=== PATIENT | male | born 1980 | race Caucasian/White ===

== ENCOUNTER 2016-10-06 11:46 | Emergency (ER) | payer BC ==
[~2016-10-06] VITALS: Ht 167.6 cm; Wt 72.7 kg
[2016-10-06 11:50] VITALS: Ht 167.6 cm; Wt 72.7 kg
[2016-10-06] MEDS ORDERED: SIMV20TA PO (11:55)
[2016-10-06] MEDS ORDERED: HYDROmorphONE 1 MG/ML SYG IV STA ×2 (12:41→15:04)
[2016-10-06] MEDS ORDERED: SOD CHLORIDE 0.9% 1,000 ML IV STA (12:41)
[2016-10-06] MEDS ORDERED: ONDANSETRON 4 MG INJ IV STA (12:41)
[2016-10-06] MEDS ORDERED: LORAZEPAM 2 MG INJ IV ONE (13:00)
[2016-10-06 13:24] VITALS: TEMP 98.6
[2016-10-06 13:32] LABS: ADD SCAN DIFF NO
[2016-10-06 13:36] LABS: BASOPHIL # 0.1 10^3/ul (0.0-0.1); BASOPHILS % 0.8 % (0.0-2.0); EOSINOPHILS # 0.1 10^3/ul (0.0-0.5); EOSINOPHILS % 1.3 % (0.0-7.0); HEMATOCRIT 41.9 % (42.0-52.0); HEMOGLOBIN 14.1 g/dl (14.0-18.0); LYMPHOCYTES # 1.6 10^3/ul (0.8-2.9); LYMPHOCYTES % 26.5 % (15.0-51.0); MEAN CORPUSCULAR HEMOGLOBIN 30.5 pg (29.0-33.0); MEAN CORPUSCULAR HGB CONC 33.7 g/dl (32.0-37.0); MEAN CORPUSCULAR VOLUME 90.7 fl (82.0-101.0); MEAN PLATELET VOLUME 10.9 fl (7.4-10.4); MONOCYTE # 0.4 10^3/ul (0.3-0.9); MONOCYTES % 6.7 % (0.0-11.0); NEUTROPHIL # 3.9 10^3/ul (1.6-7.5); NEUTROPHILS % 64.4 % (39.0-77.0); PLATELET COUNT 190 10^3/UL (140-415); RED BLOOD COUNT 4.62 10^6/ul (4.70-6.10); RED CELL DISTRIBUTION WIDTH 12.5 % (11.5-14.5)
[2016-10-06 13:47] LABS: ALBUMIN 4.4 g/dl (3.3-4.9)
[2016-10-06 13:48] LABS: POTASSIUM 3.6 mmol/L (3.5-5.1)
[2016-10-06 13:50] LABS: ALBUMIN/GLOBULIN RATIO 1.57; BILIRUBIN,INDIRECT 0.4 mg/dl (0-1.1); BILIRUBIN,TOTAL 0.4 mg/dl (0.2-1.3); CREATININE 0.62 mg/dl (0.61-1.24); TOTAL PROTEIN 7.2 g/dl (6.1-8.1)
[2016-10-06 13:51] LABS: CALCIUM 9.4 mg/dl (8.4-10.2)
[2016-10-06] MEDS ORDERED: SOD CHLORIDE 0.9% 100 ML ONE (14:04)
[2016-10-06] MEDS ORDERED: IOHEXOL 300MG/ML 150 ML BTL ONE (14:04)
--- NOTE | 2016-10-06 14:27 | RADRPT ---
PROCEDURE: CT abdomen and pelvis with contrast. CLINICAL INDICATION: Abdominal pain. TECHNIQUE: CT scan of the abdomen and pelvis with contrast was performed after the uneventful intr avenous administration of 100 cc of Omnipaque-300. Coronal and sagittal reformatted images were obta ined from the axial source images. Images were reviewed on a high-resolution PACS workstation. The t otal exam CTDI equals 10 mGy and the total exam DLP equals 602.67 mGy-cm. One or more of the following dose reduction techniques were used: - Automated exposure control. - Adjustment of the mA and/or kV according to patient size. - Use of iterative reconstruction technique. COMPARISON: None available. FINDINGS: The visualized lung bases are clear. The visualized heart is unremarkable. The liver is normal in size and density with no focal hepatic lesion identified. There is no intra or extra-hepatic biliary ductal dilatation. The gallbladder, spleen, pancreas, and adrenal glands ar e unremarkable. There are no renal masses or hydronephrosis. There is mild wall thickening of the descending colon, sigmoid colon, and rectum. There is also mil d wall thickening and hyperemia of the loop of distal ileum. The terminal ileum is normal in appear ance. There is no evidence of bowel obstruction. The appendix is not identified but there are no sec ondary findings of appendicitis. There is no free intraperitoneal air or free fluid. There is no mes enteric or retroperitoneal adenopathy. The prostate gland, seminal vesicles, and urinary bladder are unremarkable. There are atherosclerotic changes of the aorta and its branch vessels, which are non aneurysmal. There are no concerning osseous lesions. IMPRESSION: 1. Wall thickening of the descending colon, sigmoid colon, and rectum, consistent with proctocoliti s. There is also distal ileitis. Differential considerations include infection and inflammatory enid wel disease. 2. Vascular calcifications consistent with atherosclerosis. RPTAT: TT .Tobi Singh MD, MD Date Time Electronically viewed and signed by .Tobi Singh MD, MD on 10/06/2016 14:27 .P/
[2016-10-06 16:10] VITALS: BP 114/79; PULSE 90; RESP 17
[2016-10-06] MEDS ORDERED: CIPR500T4 PO (16:40)
[2016-10-06] MEDS ORDERED: METR500T14 PO (16:40)
[2016-10-06] MEDS ORDERED: HYDR-902 PO (16:40)
--- NOTE | 2016-10-06 16:45 | ERD ---
ER Documentation Chief Complaint Date/Time DATE: 10/06/16 TIME: 16:41 Chief Complaint Abdominal pain HPI This a 36-year-old male who abuses alcohol. The patient states she has had no alcohol in 5 days. Patient states he is gradually developed some diffuse lower abdominal pain with nausea but no vomiting no diarrhea. The patient's had a bowel movement this morning that was nonbloody. No back pain. The patient says that he is not an alcohol withdrawal that he has had withdrawal before. The patient says that withdrawal usually occurs when right when he stops drinking and not 5 days later. Pain is described as crampy and dull and constant without radiation. No perennial pain. ROS All systems reviewed and are negative except as per history of present illness. Medications Home Meds Active Scripts Hydrocodone/Acetaminophen (Halma 10-325 Tablet) 1 Each Tablet, 1 TAB PO Q6H Y for PAIN, #20 TAB Prov:YELENA MARTIN DO 10/06/16 Metronidazole (Flagyl) 500 Mg Tab, 500 MG PO Q8, #30 TAB Prov:YELENA MARTIN. DO 10/06/16 Ciprofloxacin Hcl* (Ciprofloxacin Hcl*) 500 Mg Tablet, 500 MG PO BID for 10 Days , TAB Prov:KENDAL MARTINSTPARISHS Jason DO 10/06/16 Reported Medications Simvastatin* (Zocor*) 20 Mg Tablet, 20 MG PO QHS, #30 TAB 10/06/16 Allergies Allergies: Coded Allergies: No Known Allergy (Unverified , 10/06/16) PMhx/Soc Medical and Surgical Hx: pt denies Medical Hx Hx Miscellaneous Medical Probl: Yes (HYPERLIPIDEMIA) Hx Alcohol Use: Yes Hx Substance Use: Yes Hx Tobacco Use: Yes Smoking Status: Current every day smoker FmHx Family History: No coronary disease Physical Exam Vitals Vital Signs Date Time Temp Pulse Resp B/P Pulse Ox O2 Delivery O2 Flow Rate FiO2 10/06/16 16:10 90 17 114/79 100 Room Air 10/06/16 15:30 87 17 102/81 100 Room Air 10/06/16 13:24 98.6 83 18 116/82 100 Room Air 10/06/16 11:50 97.8 75 18 186/97 98 Physical Exam Const: Well-developed, well-nourished Head: Atraumatic, normocephalic Eyes: Normal Conjunctiva, PERRLA, EOMI, normal sclera, no nystagmus ENT: Normal External Ears, Nose and Mouth, moist mucus membranes. Neck: Full range of motion. No meningismus, no lymphadenopathy. Resp: Clear to auscultation bilaterally, no wheezing, rhonchi, rales Cardio: Regular rate and rhythm, no murmurs, S1 S2 present Abd: Soft, mild diffuse left lower quadrant/suprapubic tenderness, non distended. Normal bowel sounds, no guarding or rebound, no pulsitile abdominal masses or bruits Skin: No petechiae or rashes, no ecchymosis , no maculopapular rash Back: No midline or flank tenderness Ext: No cyanosis, or edema, FROM x 4, normal inspection, neurovascularly intact x 4 Neur: Awake and alert, STR 5/5 x 4, sensation intact x 4, no focal findings, cerebellum intact Psych: Normal Mood and Affect Result Diagram: 10/06/16 1320 10/06/16 1320 Results 24 hrs Laboratory Tests Test 10/06/16 13:20 Alanine Aminotransferase (ALT/SGPT) 52IU/L Albumin 4.4g/dl Albumin/Globulin Ratio 1.57 Alkaline Phosphatase 78IU/L Anion Gap 17 Aspartate Amino Transf (AST/SGOT) 57IU/L Basophils # 0.110^3/ul Basophils % 0.8% Blood Urea Nitrogen 8mg/dl Calcium Level 9.4mg/dl Carbon Dioxide Level 24mmol/L Chloride Level 103mmol/L Creatinine 0.62mg/dl Direct Bilirubin 0.00mg/dl Eosinophils # 0.110^3/ul Eosinophils % 1.3% Globulin 2.80g/dl Glucose Level 101mg/dl Hematocrit 41.9% Hemoglobin 14.1g/dl Indirect Bilirubin 0.4mg/dl Lipase 102U/L Lymphocytes # 1.610^3/ul Lymphocytes % 26.5% Mean Corpuscular Hemoglobin 30.5pg Mean Corpuscular Hemoglobin Concent 33.7g/dl Mean Corpuscular Volume 90.7fl Mean Platelet Volume 10.9fl Monocytes # 0.410^3/ul Monocytes % 6.7% Neutrophils # 3.910^3/ul Neutrophils % 64.4% Nucleated Red Blood Cells # 0.010^3/ul Nucleated Red Blood Cells % 0.0/100WBC Platelet Count 50434^3/UL Potassium Level 3.6mmol/L Red Blood Count 4.6210^6/ul Red Cell Distribution Width 12.5% Sodium Level 140mmol/L Total Bilirubin 0.4mg/dl Total Protein 7.2g/dl White Blood Count 6.010^3/ul Current Medications Medications (Trade) Dose Ordered Sig/Ashley Route PRN Reason Start Time Stop Time Status Last Admin Dose Admin Sodium Chloride (NS) 1,000 ml @ 1,000 mls/hr Q1H STAT IV 10/06/16 12:41 10/06/16 13:40 DC 10/06/16 13:14 Hydromorphone HCl (Dilaudid) 1 mg ONCE STAT IV 10/06/16 12:41 10/06/16 12:43 DC 10/06/16 13:14 Ondansetron HCl (Zofran Inj) 4 mg ONCE STAT IV 10/06/16 12:41 10/06/16 12:43 DC 10/06/16 13:14 Lorazepam (Ativan) 1 mg ONCE ONCE IV 10/06/16 13:00 10/06/16 13:01 DC 10/06/16 13:14 IV Flush 10 ml 10 ml STK-MED ONCE .ROUTE 10/06/16 14:04 10/06/16 14:05 DC 10/06/16 14:21 Sodium Chloride (NS) 100 ml @ ud STK-MED ONCE .ROUTE 10/06/16 14:04 10/06/16 14:05 DC 10/06/16 14:19 Iohexol (Omnipaque 300mg/ ml) 150 ml STK-MED ONCE .ROUTE 10/06/16 14:04 10/06/16 14:05 DC 10/06/16 14:18 Hydromorphone HCl (Dilaudid) 1 mg ONCE STAT IV 10/06/16 15:04 10/06/16 15:05 DC 10/06/16 15:28 Procedures/MDM PROCEDURE: CT abdomen and pelvis with contrast. CLINICAL INDICATION: Abdominal pain. TECHNIQUE: CT scan of the abdomen and pelvis with contrast was performed after the uneventful intravenous administration of 100 cc of Omnipaque-300. Coronal and sagittal reformatted images were obtained from the axial source images. Images were reviewed on a high-resolution PACS workstation. The total exam CTDI equals 10 mGy and the total exam DLP equals 602.67 mGy-cm. One or more of the following dose reduction techniques were used: - Automated exposure control. - Adjustment of the mA and/or kV according to patient size. - Use of iterative reconstruction technique. COMPARISON: None available. FINDINGS: The visualized lung bases are clear. The visualized heart is unremarkable. The liver is normal in size and density with no focal hepatic lesion identified. There is no intra or extra-hepatic biliary ductal dilatation. The gallbladder, spleen, pancreas, and adrenal glands are unremarkable. There are no renal masses or hydronephrosis. There is mild wall thickening of the descending colon, sigmoid colon, and rectum. There is also mild wall thickening and hyperemia of the loop of distal ileum. The terminal ileum is normal in appearance. There is no evidence of bowel obstruction. The appendix is not identified but there are no secondary findings of appendicitis. There is no free intraperitoneal air or free fluid. There is no mesenteric or retroperitoneal adenopathy. The prostate gland, seminal vesicles, and urinary bladder are unremarkable. There are atherosclerotic changes of the aorta and its branch vessels, which are nonaneurysmal. There are no concerning osseous lesions. IMPRESSION: 1. Wall thickening of the descending colon, sigmoid colon, and rectum, consistent with proctocolitis. There is also distal ileitis. Differential considerations include infection and inflammatory bowel disease. 2. Vascular calcifications consistent with atherosclerosis. RPTAT: TT .Tobi Singh MD, Date Time Electronically viewed and signed by .Tobi Singh MD, MD on 10/06/2016 14:27 .P/ CC: YELENA MARTIN DO Patient is feeling better after fluids and pain medication will treat with Cipro and Flagyl and Halma. Gave him strict warning signs to return Departure Diagnosis: Primary Impression: Proctitis Condition: Stable Patient Instructions: Abdominal Pain YELENA MARTIN DO Oct 06, 2016 16:44
== END 2016-10-06 16:47 | disposition home or self-care (01) ==
LOC: E/R 11:46
DX: K62.89 Other specified diseases of anus and rectum (principal); F17.210 Nicotine dependence, cigarettes, uncomplicated
CPT/HCPCS: 36415; 74177; 80053; 83690; 85025; 96361; 96374; 96375; 96376; J1170; J2060; J2405; J7030; Q9967; Z7502; Z7610